=== PATIENT | female | born 1980 | race Caucasian/White ===

== ENCOUNTER → 2018-11-11 | Outpatient (CLI) | payer OTHER | LOC: DL.US 08:52 | PROVIDERS: ATTEND Family Medicine | DX: O30.001 Twin pregnancy, unspecified number of placenta and unspecified number of amniotic sacs, first trimester (principal); O20.8 Other hemorrhage in early pregnancy; Z3A.01 Less than 8 weeks gestation of pregnancy | CPT/HCPCS: 76801 ==

== ENCOUNTER 2019-06-06 07:25 | Inpatient (IN) | payer OTHER ==
[2019-06-06] MEDS ORDERED: Butorphanol 2 MG/ML SDV IVPUSH PRN (08:40)
[2019-06-06] MEDS ORDERED: Misoprostol 400 MCG (4 X 100 MCG TAB) RECTAL PRN (08:40)
[2019-06-06] MEDS ORDERED: Lactated Ringers 1,000 ML IV ONE (08:40)
[2019-06-06] MEDS ORDERED: Ondansetron 4 MG/2 ML SDV IV PRN (08:40)
[2019-06-06] MEDS ORDERED: Carboprost Tromethamine 250 MCG/1 ML Amp IM PRN (08:40)
[2019-06-06] MEDS ORDERED: fentaNYL 100 MCG/2 ML SDV SUBCUT PRN (08:40)
[2019-06-06] MEDS ORDERED: Tranexamic Acid 1,000 MG in Sodium Chloride 0.9% 100 ML IV PRN (08:40)
[2019-06-06] MEDS ORDERED: Methylergonovine 0.2 MG/1 ML Amp IM PRN (08:40)
[2019-06-06] MEDS ORDERED: Acetaminophen 325 MG Tab PO PRN (08:40)
[2019-06-06] MEDS ORDERED: Lidocaine 1% 30 ML SDV INJECT PRN (08:40)
[2019-06-06] MEDS ORDERED: Sodium Chloride 0.9% 10 ML Syringe FLUSH PRN (08:40)
--- NOTE | 2019-06-06 08:44 | PCM.LDHP ---
L&D History of Present Illness - General Date of Service: 06/06/19 Admit Problem/Dx: Patient Status Order with Admit Dx/Problem 06/06/19 08:40 Patient Status [ADT] Routine Admission Diagnosis/Problem Admission Diagnosis/Problem care in third trimester Source of Information: Patient History Limitations: Reports: No Limitations - History of Present Illness Introduction:: 38-year-old at 36w5d presents to L&D after gross PPROM at 0700 this morning. Patient states she was laying in bed when she felt a pop and gush of fluid. Fluid was clear. No vaginal bleeding. No contractions. Baby has been active. has been complicated by advanced maternal age and Rh negative status. Patient conceived with use of Clomid. This was initially a twin but one twin passed during the 1st trimester. - Related Data Allergies/Adverse Reactions: Allergies Allergy/AdvReac Type Severity Reaction Status Date / Time erythromycin base Allergy Cannot Verified 06/06/19 08:45 [From Erythrocin] Remember Sulfa (Sulfonamide Allergy Cannot Verified 06/06/19 08:45 Antibiotics) Remember Past Medical History HEENT History: Reports: Impaired Vision Cardiovascular History: Reports: None Respiratory History: Reports: None Gastrointestinal History: Reports: None Genitourinary History: Reports: None BUSINESS SUPPORT PROFESSIONAL History: Reports: , Spontaneous , Other (See Below) Other OB/BYN History: hx LEEP procedure Musculoskeletal History: Reports: None Neurological History: Reports: None Psychiatric History: Reports: Depression Endocrine/Metabolic History: Reports: None Hematologic History: Reports: None Immunologic History: Reports: None Oncologic (Cancer) History: Reports: None Dermatologic History: Reports: Other (See Below) Other Dermatologic History: breast enhancement - Infectious Disease History Infectious Disease History: Reports: None - Past Surgical History Head Surgeries/Procedures: Reports: None Social & Family History - Family History Family Medical History: Noncontributory H&P Review of Systems - Review of Systems: Review Of Systems: See Below General: Reports: No Symptoms HEENT: Reports: No Symptoms Pulmonary: Reports: No Symptoms Cardiovascular: Reports: No Symptoms Gastrointestinal: Reports: Diarrhea (intermittent x 2 days) Musculoskeletal: Reports: Back Pain Skin: Reports: No Symptoms L&D Exam - Exam Exam: See Below - OB Specific Contraction Intensity: Mild Movement: Active Heart Tones: Present Heart Tones per Min: 135 Heart Rate (FHR) Variability: Moderate (6-25 bmp) Presentation: Vertex - Tao Score Tao Score Cervix Position: Midposition Tao Score Consistency: Soft Tao Score Effacement: 51-70% Tao Score Dilation: 3-4 cm Tao Score 's Station: -1 ,0 Tao Score Total: 9 - Exam General: Alert, Oriented Lungs: Clear to Auscultation, Normal Respiratory Effort Cardiovascular: Regular Rate, Regular Rhythm. No: Systolic Murmur, Diastolic Murmur Genitourinary: Normal external exam Extremities: Pedal Edema (1+ bilaterally) Skin: Warm, Dry, Intact - Patient Data Result Diagrams: 06/06/19 07:57 Problem List Initiated/Reviewed/Updated: Yes Orders Last 24hrs: Active Orders 24 hr Category Date Time Status Patient Status [ADT] Routine ADT 06/06/19 08:40 Ordered Communication Order [RC] ASDIRECTED Care 06/06/19 08:40 Ordered Heart Tones [RC] PER UNIT ROUTINE Care 06/06/19 08:40 Ordered Notify Provider Vital Signs OB [RC] ASDIRECTED Care 06/06/19 08:40 Ordered Notify Provider [RC] PRN Care 06/06/19 08:40 Ordered POC Labs [RC] ASDIRECTED Care 06/06/19 08:40 Ordered Pump Management, Intrathecal [RC] ASDIRECTED Care 06/06/19 08:40 Ordered Up ad Jocelin [RC] ASDIRECTED Care 06/06/19 08:40 Ordered Vital Signs [RC] PER UNIT ROUTINE Care 06/06/19 08:40 Ordered Regular Diet [DIET] Diet 06/06/19 Lunch Ordered CBC W/O DIFF,HEMOGRAM [HEME] Routine Lab 06/06/19 08:40 Ordered Acetaminophen [Tylenol] Med 06/06/19 08:40 Ordered 650 mg PO Q4H PRN Butorphanol [Stadol] Med 06/06/19 08:40 Ordered 1 mg IVPUSH Q3H PRN Carboprost Tromethamine [Hemabate DS] Med 06/06/19 08:40 Ordered 250 mcg IM ASDIRECTED PRN Lactated Ringers @ 125 MLS/HR(1000ml) Med 06/06/19 08:45 Ordered Lactated Ringers [Ringers, Lactated] 1,000 ml IV ASDIRECTED Lactated Ringers [Ringers, Lactated] 1,000 ml Med 06/06/19 08:40 Ordered IV BOLUS Lidocaine 1% [Xylocaine-MPF 1%] Med 06/06/19 08:40 Ordered 30 ml INJECT ASDIRECTED PRN Methylergonovine [Methergine] Med 06/06/19 08:40 Ordered 0.2 mg IM ASDIRECTED PRN Ondansetron [Zofran] Med 06/06/19 08:40 Ordered 4 mg IV Q4H PRN Oxytocin 30 Units in NS @ 2 MUNITS/MIN(500ml) Med 06/06/19 08:45 Ordered Oxytocin/Normal Saline [Pitocin in NS 30 UNIT/500 ML] 30 unit in 500 ml IV TITRATE Penicillin G Potassium [Pfizerpen] 3 millunits Med 06/06/19 10:00 Ordered Sodium Chloride 0.9% [Normal Saline] 100 ml IV Q4HR Penicillin G Potassium [Pfizerpen] 5 millunits Med 06/06/19 08:40 Ordered Sodium Chloride 0.9% [Normal Saline] 100 ml IV ONETIME Sodium Chloride 0.9% [Saline Flush] Med 06/06/19 08:40 Ordered 10 ml FLUSH ASDIRECTED PRN Tranexamic Acid [Cyklokapron] 1,000 mg Med 06/06/19 08:40 Ordered Sodium Chloride 0.9% [Normal Saline] 100 ml IV ONETIME fentaNYL [Sublimaze] Med 06/06/19 08:40 Ordered 50 mcg SUBCUT Q1H PRN miSOPROStoL [Cytotec] Med 06/06/19 08:40 Ordered 800 mcg RECTAL ASDIRECTED PRN Saline Lock Insert [OM.PC] Routine Oth 06/06/19 08:40 Ordered Resuscitation Status Routine Resus Stat 06/06/19 08:40 Ordered Assessment/Plan Comment:: 38-year-old at 36w5d presented to L&D with PPROM 1. Admit to L&D and initiate routine intrapartum orders 2. PCN for GBS unknown status. GBS swab was obtained yesterday--results are pending. 3. Pitocin for augmentation of labor 4. Patient is considering intrathecal for pain control 5. Expectant management. Anticipate . Jesusita Pedraza MD
[2019-06-06] MEDS ORDERED: Penicillin G Potassium 5 MILLUNITS in Sodium Chloride 0.9% 100 ML IV ONE (09:00)
[2019-06-06] MEDS: Lactated Ringers 1,000 ML IV SCH ×2 (09:46→15:27)
[2019-06-06] MEDS: Oxytocin/Normal Saline 30 UNIT/500 ML BAG IV SCH ×2 (09:47→17:37)
[2019-06-06] MEDS ORDERED: Penicillin G Potassium 3 MILLUNITS in Sodium Chloride 0.9% 100 ML IV SCH (13:00)
[2019-06-06] MEDS ORDERED: fentaNYL 100 MCG/2 ML SDV ONE (15:08)
[2019-06-06] MEDS ORDERED: EPINEPHrine 1 MG/1 ML Amp ONE (15:08)
--- NOTE | 2019-06-06 15:32 | PCM.PRNOTE ---
- Free Text/Narrative Note: Requested to provide analgesia to full term patient in severe pain. Upon entering the room, patient is sitting on edge of bed complaining of severe abdominal/pelvic pain and discomfort. Procedure was discussed with patient including adverse outcomes and expectations. Pt consented to analgesia, SAB/ IT. Pt placed into a proper sitting position. Landmarks for SAB/IT were identified and marked. Hands were washed and appropriate PPE was applied. Back was prepped with betadine x3. A sterile, transparent, fenestrated drape was applied. Excess betadine was removed. Using 3 mL of a 1% lidocaine solution , a skin wheel was placed at the L2/L3 interspace. A 24 ga (4 inch) Pencan spinal needle was inserted until positive for CSF. Negative for heme or paresthesias. Injected fentanyl 30 mcg, sufentanil 25 mcg, and 7.5 mg of a 0.75 % bupivacaine solution with an epi wash. Pt was placed left lateral position for approximately 20 minutes. There were zero complications or adverse outcomes. Will continue to monitor. Procedure Date & Time: 06/06/19 [id number]
[2019-06-06] MEDS ORDERED: Oxytocin 10 Units/1 ML SDV IM PRN (17:00)
[2019-06-06] MEDS ORDERED: Benzocaine/Menthol 20%-0.5% Spray 56 GM Canister TOP PRN (17:00)
[2019-06-06] MEDS ORDERED: Simethicone 80 MG Tab.Chew PO PRN (17:00)
--- NOTE | 2019-06-06 17:10 | PCM.DEL ---
& Note - General Info Date of Service: 06/06/19 Mother's Due Date: 06/29/19 - Delivery Note Labor: Spontaneous, Augmented by Oxytocin Delivery Outcome: Livebirth Infant Delivery Method: Spontaneous Vaginal Delivery-Single Presentation: Vertex Nuchal Cord: None Anesthesia Type: Intrathecal Amniotic Fluid Description: Clear Episiotomy Type: None Laceration: 1st Degree, Perineal (no repair needed) Placenta: Intact, Spontaneous Cord: 3 Vessels Estimated Blood Loss: 400 Resuscitation Needed: No [place]: Bulb Syringe, Stimulated, Warmed Provider: Jesusita Pedraza Score 1 min: 9 Score 5 min: 9 Delivery Comments (Free Text/Narrative):: 38-year-old at 36w5d presented to &D with PPROM at 0700 today. She was confirmed to be grossly ruptured. She was treated with PCN for GBS unknown status. GBS results were received while patient was in labor and were noted to be negative so this was later discontinued. As patient was having no contractions upon arrival to &, pitocin was ordered. Patient tolerated the pitocin well. She received an intrathecal around 1520 for pain control. Patient rapidly progressed to complete dilated. At 1547, she delivered a viable female infant after 1 push. Apgars were 9 and 9 at 1 and 5 minutes respectively. Baby was placed on patient's chest. After the umbilical cord stopped pulsating, the cord was clamped x2 and cut. Cord blood was collected. The placenta delivered spontaneously about 3 minutes later and pitocin was started. Initially, uterine tone was noted to be poor. Pitocin was bolused and bimanual massage was performed. Uterine tone did improve. IM methergine was given. Uterine tone continued to be appropriate and bleeding decreased significantly so rate of pitocin was gradually decreased. A 1st degree perineal laceration was noted but was hemostatic so no repair was done. Patient tolerated the procedure well, and there were no immediate complications. - General Info Date of Service: 06/06/19 - Patient Data Vitals - Most Recent: Last Vital Signs Temp 36.4 C 06/06/19 15:09 Pulse 75 06/06/19 15:48 Resp 16 06/06/19 09:50 BP 103/62 06/06/19 15:48 Pulse Ox 98 06/06/19 09:31 Weight - Most Recent: 106.594 kg Lab Results Last 24 Hours: Laboratory Results - last 24 hr 06/06/19 Range/Units 07:57 WBC 9.8 (5.0-10.0) 10^3/uL RBC 4.18 L (4.2-5.4) 10^6/uL Hgb 12.0 (12.0-16.0) g/dL Hct 36.3 L (37.0-47.0) % MCV 86.8 (80-100) fL MCH 28.7 (27.0-34.0) pg MCHC 33.1 (33.0-35.0) g/dL Plt Count 269 (150-450) 10^3/uL Med Orders - Current: Current Medications Acetaminophen (Tylenol) 650 mg PO Q4H PRN PRN Reason: Pain (Mild 1-3) and fever Benzocaine/Menthol (Dermoplast Pain Relief [place]) 0 gm TOP Q4H PRN PRN Reason: Perineal comfort measures Carboprost Tromethamine (Hemabate Ds) 250 mcg IM ASDIRECTED PRN PRN Reason: HEMORRHAGE Docusate Sodium (Colace) 100 mg PO BID PRN PRN Reason: Constipation Lactated Ringer's (Ringers, Lactated) 1,000 mls @ 125 mls/hr IV ASDIRECTED EDWARDO Last Admin: 06/06/19 15:27 Dose: 125 mls/hr Oxytocin/Sodium Chloride (Pitocin In Ns 30 Unit/500 Ml) 30 unit in 500 mls @ 2 mls/hr IV TITRATE EDWARDO; Protocol Last Titration: 06/06/19 15:57 Dose: 500 munits/min, 500 mls/hr Tranexamic Acid 1,000 mg/ (Sodium Chloride) 110 mls @ 660 mls/hr IV ONETIME PRN PRN Reason: Bleeding Ibuprofen (Motrin) 800 mg PO Q8H PRN PRN Reason: Mild Pain or Fever Lidocaine HCl (Xylocaine-Mpf 1%) 30 ml INJECT ASDIRECTED PRN PRN Reason: Perineal Repair Methylergonovine Maleate (Methergine) 0.2 mg IM ASDIRECTED PRN PRN Reason: Hemorrhage Last Admin: 06/06/19 15:55 Dose: 0.2 mg Misoprostol (Cytotec) 800 mcg RECTAL ASDIRECTED PRN PRN Reason: Hemorrhage Ondansetron HCl (Zofran) 4 mg IV Q4H PRN PRN Reason: Nausea/Vomiting Last Admin: 06/06/19 15:00 Dose: 4 mg Oxytocin (Pitocin) 10 unit IM ONETIME PRN PRN Reason: Bleeding Prenat Multivit/[place]/Iron/Folic Ac ( Plus Iron) 1 each PO DAILY EDWARDO Simethicone (Simethicone) 80 mg PO Q4H PRN PRN Reason: Gas Sodium Chloride (Saline Flush) 10 ml FLUSH ASDIRECTED PRN PRN Reason: Keep Vein Open Discontinued Medications Butorphanol Tartrate (Stadol) 1 mg IVPUSH Q3H PRN PRN Reason: Pain Epinephrine HCl (Adrenalin) Confirm Administered Dose 1 mg .ROUTE .STK-MED ONE Stop: 06/06/19 15:09 Fentanyl (Sublimaze) 50 mcg SUBCUT Q1H PRN PRN Reason: Pain (moderate 4-6) Fentanyl (Sublimaze) Confirm Administered Dose 100 mcg .ROUTE .STK-MED ONE Stop: 06/06/19 15:09 Lactated Ringer's (Ringers, Lactated) 1,000 mls @ 999 mls/hr IV BOLUS ONE Stop: 06/06/19 09:40 Penicillin G Potassium 5 (millunits/ Sodium Chloride) 100 mls @ 200 mls/hr IV ONETIME ONE Stop: 06/06/19 09:29 Last Admin: 06/06/19 08:56 Dose: 200 mls/hr Penicillin G Potassium 3 (millunits/ Sodium Chloride) 100 mls @ 200 mls/hr IV Q4H EDWARDO Last Admin: 06/06/19 12:47 Dose: 200 mls/hr Sufentanil Citrate (Sufenta) Confirm Administered Dose 50 mcg .ROUTE .STK-MED ONE Stop: 06/06/19 15:10 - Problem List & Annotations (1) care in third trimester SNOMED Code(s): 735005324, 44491217, 43799497, 545303149, 719430067 Code(s): Z34.93 - ENCNTR FOR SUPRVSN OF NORMAL PREG, UNSP, THIRD TRIMESTER Status: Acute Current Visit: Yes (2) AMA (advanced maternal age) multigravida 35+ SNOMED Code(s): 809250083 Code(s): O09.529 - SUPERVISION OF ELDERLY MULTIGRAVIDA, UNSPECIFIED TRIMESTER Status: Acute Current Visit: Yes (3) Impaired glucose in , antepartum SNOMED Code(s): 511811148, 602939989 Code(s): O99.810 - ABNORMAL GLUCOSE COMPLICATING Status: Acute Current Visit: Yes (4) Rh negative status during SNOMED Code(s): 058312486 Code(s): O26.899 - OTH RELATED CONDITIONS, UNSPECIFIED TRIMESTER; Z67.91 - UNSPECIFIED BLOOD TYPE, RH NEGATIVE Status: Acute Current Visit: Yes (5) premature rupture of membranes (PPROM) delivered, current hospitalization SNOMED Code(s): 498497941, 937461536 Code(s): O42.919 - PRETRM FRANK ROM, UNSP TIME BETW RUPT AND ONST LABR, UNSP TRI Status: Acute Current Visit: Yes (6) (normal spontaneous vaginal delivery) SNOMED Code(s): 12868954, 699961473 Code(s): O80 - ENCOUNTER FOR FULL-TERM UNCOMPLICATED DELIVERY Status: Acute Current Visit: Yes - Problem List Review Problem List Initiated/Reviewed/Updated: Yes - My Orders Last 24 Hours: My Active Orders 06/06/19 08:40 Patient Status [ADT] Routine Notify Provider Vital Signs OB [RC] ASDIRECTED POC Labs [RC] ASDIRECTED Up ad Jocelin [RC] ASDIRECTED Acetaminophen [Tylenol] 650 mg PO Q4H PRN Carboprost Tromethamine [Hemabate DS] 250 mcg IM ASDIRECTED PRN Lidocaine 1% [Xylocaine-MPF 1%] 30 ml INJECT ASDIRECTED PRN Methylergonovine [Methergine] 0.2 mg IM ASDIRECTED PRN Ondansetron [Zofran] 4 mg IV Q4H PRN Sodium Chloride 0.9% [Saline Flush] 10 ml FLUSH ASDIRECTED PRN Tranexamic Acid [Cyklokapron] 1,000 mg Sodium Chloride 0.9% [Normal Saline] 100 ml IV ONETIME miSOPROStoL [Cytotec] 800 mcg RECTAL ASDIRECTED PRN Saline Lock Insert [OM.PC] Routine Resuscitation Status Routine 06/06/19 08:45 Lactated Ringers [Ringers, Lactated] 1,000 ml IV ASDIRECTED Oxytocin/Normal Saline [Pitocin in NS 30 UNIT/500 ML] 30 unit in 500 ml IV TITRATE 06/06/19 14:00 Nitrous Oxide Delivery [RC] ASDIRECTED 06/06/19 17:00 Vital Signs [RC] PFP Consult to Toys Inspector [CONS] Routine Benzocaine/Menthol [Dermoplast Pain Relief [place]] See Dose Instructions TOP Q4H PRN Docusate Sodium [Colace] 100 mg PO BID PRN Ibuprofen [Motrin] 800 mg PO Q8H PRN Oxytocin [Pitocin] 10 unit IM ONETIME PRN Simethicone 80 mg PO Q4H PRN Assess Lochia [WOMSER] Per Unit Routine Assess Uterine Involution [WOMSER] Per Unit Routine Breast Pump [WOMSER] Per Unit Routine Ice Therapy [OM.PC] Per Unit Routine Perineal Care [OM.PC] Per Unit Routine Sitz Bath [OM.PC] Per Unit Routine 06/06/19 Lunch Regular Diet [DIET] 06/07/19 09:00 Vit with Ca/FA/Iron [ Plus Iron] 1 each PO DAILY 06/08/19 07:00 CBC W/O DIFF,HEMOGRAM [HEME] Routine - Assessment Assessment:: 38-year-old now status post at 36w5d - Plan Plan:: 1. Initiate routine cares 2. Will check CBC tomorrow morning due to blood loss 3. Plans to breastfeed 4. Anticipate discharge 06/08/2019 Jesusita Pedraza MD
[2019-06-06] MEDS ORDERED: Metoclopramide 10 MG/2 ML SDV IVPUSH PRN (18:25)
[2019-06-06] MEDS: Docusate Sodium 100 MG Cap PO PRN (21:34)
[2019-06-06] MEDS: Ibuprofen 800 MG Tab PO PRN (21:34)
[2019-06-07] MEDS: Docusate Sodium 100 MG Cap PO PRN ×2 (08:22→20:30)
[2019-06-07] MEDS: Ibuprofen 800 MG Tab PO PRN ×2 (08:22→16:31)
[2019-06-07] MEDS: Prenatal Multivitamin with Calcium/Folic Acid/Iron Tab PO SCH (08:22)
[2019-06-08] MEDS: Ibuprofen 800 MG Tab PO PRN ×2 (00:49→08:11)
[2019-06-08] MEDS: Docusate Sodium 100 MG Cap PO PRN (08:11)
[2019-06-08] MEDS: Prenatal Multivitamin with Calcium/Folic Acid/Iron Tab PO SCH (08:11)
[2019-06-08] MEDS ORDERED: fentaNYL 100 MCG/2 ML SDV ITHECAL ONE (12:18)
[2019-06-08] MEDS ORDERED: EPINEPHrine 1 MG/1 ML Amp IV ONE (12:18)
--- NOTE | 2019-06-09 16:26 | PCM.DCSUM1 ---
Discharge Summary - Hospital Course Diagnosis: Stroke: No - Discharge Data Discharge Disposition: Home, Self-Care 01 Condition: Good - Referral to Home Health Primary Care Physician: Rupinder Pedraza MD - Discharge Diagnosis/Problem(s) (1) care in third trimester SNOMED Code(s): 301585166, 06291281, 22174434, 108789264, 747580839 ICD Code: Z34.93 - ENCNTR FOR SUPRVSN OF NORMAL PREG, UNSP, THIRD TRIMESTER Status: Acute (2) AMA (advanced maternal age) multigravida 35+ SNOMED Code(s): 561941486 ICD Code: O09.529 - SUPERVISION OF ELDERLY MULTIGRAVIDA, UNSPECIFIED TRIMESTER Status: Acute (3) Impaired glucose in , antepartum SNOMED Code(s): 341253181, 314733023 ICD Code: O99.810 - ABNORMAL GLUCOSE COMPLICATING Status: Acute (4) Rh negative status during SNOMED Code(s): 373517265 ICD Code: O26.899 - OTH RELATED CONDITIONS, UNSPECIFIED TRIMESTER; Z67.91 - UNSPECIFIED BLOOD TYPE, RH NEGATIVE Status: Acute (5) premature rupture of membranes (PPROM) delivered, current hospitalization SNOMED Code(s): 768365278, 016144380 ICD Code: O42.919 - PRETRM FRANK ROM, UNSP TIME BETW RUPT AND ONST LABR, UNSP TRI Status: Acute (6) (normal spontaneous vaginal delivery) SNOMED Code(s): 04536559, 781315045 ICD Code: O80 - ENCOUNTER FOR FULL-TERM UNCOMPLICATED DELIVERY Status: Acute - Patient Summary/Data Consults: Consultations 06/06/19 17:00 Consult to Repair Tech [CONS] Routine - Patient Instructions Diet: Usual Diet as Tolerated Activity: No Lifting Over 20 Pounds Driving: May Drive Today Showering/Bathing: May Shower Notify Provider of: Fever, Increased Pain, Drainage, Nausea and/or Vomiting - Discharge Plan *PRESCRIPTION DRUG MONITORING PROGRAM REVIEWED*: Not Applicable *COPY OF PRESCRIPTION DRUG MONITORING REPORT IN PATIENT KODI: Not Applicable Home Medications: Home Meds Ondansetron [Zofran Odt] 8 mg PO Q8H PRN 06/06/19 [History] Polyethylene Glycol 3350 [MiraLAX] 17 gm PO DAILY PRN 06/06/19 [History] Vit/FA/Fe Fumarate/Se [ MTR] 1 tab PO DAILY 06/06/19 [History] hydrOXYzine HCL [Hydroxyzine HCl] 25 mg PO TID PRN 06/06/19 [History] Acetaminophen [Tylenol] 650 mg PO Q4H PRN tablet 06/08/19 [Rx] Docusate Sodium [Colace] 100 mg PO BID PRN cap 06/08/19 [Rx] Ibuprofen [Motrin] 800 mg PO Q8H PRN tablet 06/08/19 [Rx] Patient Handouts: Vaginal Delivery, Care After, Care After Vaginal Delivery - Patient Data Vitals - Most Recent: Last Vital Signs Temp 36.1 C 06/08/19 08:00 Pulse 87 06/08/19 08:00 Resp 16 06/08/19 08:00 BP 129/85 06/08/19 08:00 Pulse Ox 98 06/07/19 20:00 Weight - Most Recent: 106.594 kg Med Orders - Current: Current Medications Discontinued Medications Acetaminophen (Tylenol) 650 mg PO Q4H PRN PRN Reason: Pain (Mild 1-3) and fever Last Admin: 06/07/19 20:30 Dose: 650 mg Benzocaine/Menthol (Dermoplast Pain Relief [place]) 0 gm TOP Q4H PRN PRN Reason: Perineal comfort measures Last Admin: 06/06/19 21:34 Dose: 1 spray Butorphanol Tartrate (Stadol) 1 mg IVPUSH Q3H PRN PRN Reason: Pain Carboprost Tromethamine (Hemabate Ds) 250 mcg IM ASDIRECTED PRN PRN Reason: HEMORRHAGE Docusate Sodium (Colace) 100 mg PO BID PRN PRN Reason: Constipation Last Admin: 06/08/19 08:11 Dose: 100 mg Epinephrine HCl (Adrenalin) Confirm Administered Dose 1 mg .ROUTE .STK-MED ONE Stop: 06/06/19 15:09 Last Admin: 06/06/19 17:47 Dose: Not Given Epinephrine HCl (Adrenalin) 0.1 mg IV .STK-MED ONE Stop: 06/08/19 12:19 Fentanyl (Sublimaze) 50 mcg SUBCUT Q1H PRN PRN Reason: Pain (moderate 4-6) Fentanyl (Sublimaze) Confirm Administered Dose 100 mcg .ROUTE .STK-MED ONE Stop: 06/06/19 15:09 Last Admin: 06/06/19 17:48 Dose: Not Given Fentanyl (Sublimaze) 30 mcg ITHECAL .STK-MED ONE Stop: 06/08/19 12:19 Lactated Ringer's (Ringers, Lactated) 1,000 mls @ 999 mls/hr IV BOLUS ONE Stop: 06/06/19 09:40 Last Admin: 06/06/19 17:48 Dose: Not Given Lactated Ringer's (Ringers, Lactated) 1,000 mls @ 125 mls/hr IV ASDIRECTED EDWARDO Last Admin: 06/06/19 15:27 Dose: 125 mls/hr Oxytocin/Sodium Chloride (Pitocin In Ns 30 Unit/500 Ml) 30 unit in 500 mls @ 2 mls/hr IV TITRATE EDWARDO; Protocol Last Titration: 06/06/19 18:43 Dose: 50 munits/min, 50 mls/hr Penicillin G Potassium 5 (millunits/ Sodium Chloride) 100 mls @ 200 mls/hr IV ONETIME ONE Stop: 06/06/19 09:29 Last Admin: 06/06/19 08:56 Dose: 200 mls/hr Penicillin G Potassium 3 (millunits/ Sodium Chloride) 100 mls @ 200 mls/hr IV Q4H EDWARDO Last Admin: 06/06/19 12:47 Dose: 200 mls/hr Tranexamic Acid 1,000 mg/ (Sodium Chloride) 110 mls @ 660 mls/hr IV ONETIME PRN PRN Reason: Bleeding Ibuprofen (Motrin) 800 mg PO Q8H PRN PRN Reason: Mild Pain or Fever Last Admin: 06/08/19 08:11 Dose: 800 mg Lidocaine HCl (Xylocaine-Mpf 1%) 30 ml INJECT ASDIRECTED PRN PRN Reason: Perineal Repair Methylergonovine Maleate (Methergine) 0.2 mg IM ASDIRECTED PRN PRN Reason: Hemorrhage Last Admin: 06/06/19 15:55 Dose: 0.2 mg Metoclopramide HCl (Reglan) 10 mg IVPUSH ONETIME PRN PRN Reason: Nausea Last Admin: 06/06/19 19:14 Dose: 10 mg Misoprostol (Cytotec) 800 mcg RECTAL ASDIRECTED PRN PRN Reason: Hemorrhage Ondansetron HCl (Zofran) 4 mg IV Q4H PRN PRN Reason: Nausea/Vomiting Last Admin: 06/06/19 15:00 Dose: 4 mg Oxytocin (Pitocin) 10 unit IM ONETIME PRN PRN Reason: Bleeding Prenat Multivit/[place]/Iron/Folic Ac ( Plus Iron) 1 each PO DAILY EDWARDO Last Admin: 06/08/19 08:11 Dose: 1 each Simethicone (Simethicone) 80 mg PO Q4H PRN PRN Reason: Gas Sodium Chloride (Saline Flush) 10 ml FLUSH ASDIRECTED PRN PRN Reason: Keep Vein Open Sufentanil Citrate (Sufenta) Confirm Administered Dose 50 mcg .ROUTE .STSite Intelligence-MED ONE Stop: 06/06/19 15:10 Last Admin: 06/06/19 17:48 Dose: Not Given Sufentanil Citrate (Sufenta) 25 mcg ITHECAL .STK-MED ONE Stop: 06/08/19 12:19
== END 2019-06-08 12:19 | disposition home or self-care (01) | DRG 807 ==
LOC: DL.OBCHECK 07:25 → UNDOADMOB 08:40 → OBSVTOIN 08:40 → DL.OB 08:40 → INTOOBSV 08:40 → DL.OB 16:42 → OBSVTOIN 16:42
PROVIDERS: ADMIT Family Medicine; ATTEND Family Medicine
PROC: 10E0XZZ Delivery of Products of Conception, External Approach (ICD-10-PCS; principal; 2019-06-06)
DX: O99.814 Abnormal glucose complicating childbirth (principal); Z37.0 Single live birth; O42.913 Preterm premature rupture of membranes, unspecified as to length of time between rupture and onset of labor, third trimester; O26.893 Other specified pregnancy related conditions, third trimester; Z3A.36 36 weeks gestation of pregnancy; Z67.91 Unspecified blood type, Rh negative
CPT/HCPCS: 36415; 59025; 59409; 85027; 85461; 86850; 86870; 86900; 86901; A9270-GY; J0171; J2210; J2405; J2540; J2590; J2765; J2790; J3010; J7050; J7120

== ENCOUNTER 2023-07-22 05:54 | Day surgery (SDC) | payer OTHER ==
[2023-07-22] MEDS ORDERED: Midazolam 1 MG/ML 2 ML SDV ONE (06:05)
[2023-07-22] MEDS ORDERED: fentaNYL 100 MCG/2 ML SDV ONE (06:06)
[2023-07-22] MEDS: fentaNYL 100 MCG/2 ML SDV IV ONE ×3 (06:25→06:33)
[2023-07-22] MEDS: Dextrose 5%-0.45% NaCl 1,000 ML IV SCH (06:25)
[2023-07-22] MEDS: Midazolam 1 MG/ML 2 ML SDV IV ONE ×6 (06:26→06:33)
== END 2023-07-22 08:30 | disposition home or self-care (01) ==
LOC: DL.ENDO 05:54
PROVIDERS: ATTEND Internal Medicine Gastroenterology
DX: Z12.11 Encounter for screening for malignant neoplasm of colon (principal); D12.5 Benign neoplasm of sigmoid colon; K59.09 Other constipation; F32.A Depression, unspecified; Z79.899 Other long term (current) drug therapy; Z88.5 Allergy status to narcotic agent; Z88.8 Allergy status to other drugs, medicaments and biological substances; Z88.2 Allergy status to sulfonamides
CPT/HCPCS: 81025; J2250; J3010; J7042